=== PATIENT | female | born 1970 | race Caucasian/White ===

== ENCOUNTER 2024-04-02 00:39 | Emergency (ER) | payer BC, OTHER ==
[2024-04-02] MEDS: SUMAtriptan 50 MG Tab PO ONE (01:29)
[2024-04-02] MEDS: Ketorolac 60 MG/2 ML SDV IM ONE (01:29)
== END 2024-04-02 01:58 | disposition home or self-care (01) ==
LOC: JD.ED 00:39
DX: S00.03XA Contusion of scalp, initial encounter (principal); Z86.69 Personal history of other diseases of the nervous system and sense organs; W01.198A Fall on same level from slipping, tripping and stumbling with subsequent striking against other object, initial encounter
CPT/HCPCS: 96372; 99283; A9270; J1885; 99284

== ENCOUNTER 2024-04-03 11:03 | Emergency (ER) | payer OTHER | END 2024-04-03 11:31 | LOC: JD.ED 11:03 | DX: S13.4XXA Sprain of ligaments of cervical spine, initial encounter (principal); Z90.10 Acquired absence of unspecified breast and nipple; W19.XXXA Unspecified fall, initial encounter | CPT/HCPCS: 99283 ==